=== PATIENT | male | born 1935 ===

== ENCOUNTER 2017-10-31 08:19 | Outpatient (CLI) | payer OTHER | END 2017-10-31 08:31 | disposition home or self-care (01) | LOC: SONOGRAMA 08:19 | DX: R10.84 Generalized abdominal pain (principal) ==

== ENCOUNTER 2017-10-31 09:42 | Outpatient (CLI) | payer OTHER | END 2017-10-31 13:11 | disposition home or self-care (01) | LOC: LAB 09:42 | DX: R10.84 Generalized abdominal pain (principal) ==